=== PATIENT | female | born 1995 | race Caucasian/White ===

== ENCOUNTER 2017-01-12 08:03 | Emergency (ER) | payer OTHER ==
[~2017-01-12] VITALS: Ht 157.5 cm; Wt 72.2 kg
[2017-01-12 08:10] VITALS: BP 120/71
== END 2017-01-12 09:38 | disposition home or self-care (01) ==
LOC: ED 08:03
DX: O26.891 Other specified pregnancy related conditions, first trimester (principal); Z3A.13 13 weeks gestation of pregnancy

== ENCOUNTER 2018-05-23 20:05 | Inpatient (IN) | payer OTHER ==
[~2018-05-23] VITALS: Ht 160 cm; Wt 71.8 kg
[2018-05-23 20:19] VITALS: Ht 160 cm; Wt 71.8 kg
[2018-05-23 21:21] LABS: BASOPHIL % 0.3 % (0-2); PLATELET COUNT 395 x10^3mcL (130-400); RED CELL DISTRIBUTION WIDTH 19.2 % (11.5-14.5)
[2018-05-23 21:29] LABS: CALCIUM 9.3 mg/dL (8.5-10.1); CARBON DIOXIDE 24.1 mmol/L (21-32); CHLORIDE SERUM 102 mmol/L (98-107); CREATININE SERUM 0.5 mg/dL (0.6-1.0); GFR1 > 60 mL/min; GLUCOSE SERUM 101 mg/dL (74-106); SODIUM SERUM 136 mmol/L (136-145)
[2018-05-23 21:34] LABS: ALBUMIN 3.9 g/dL (3.4-5.0); ALKALINE PHOSPHATASE 158 U/L (46-116); ALT/SGPT 89 U/L (14-59); AST/SGOT 136 U/L (15-37); BILIRUBIN TOTAL 0.4 mg/dL (0.20-1.00); LIPASE 139 IU/L (73-393); TOTAL PROTEIN, SERUM 8.3 g/dL (6.4-8.2)
[2018-05-24 03:03] VITALS: BP 121/70
[2018-05-24 04:28] LABS: TOTAL IRON BINDING CAPACITY 419 ug/dL (250-450)
[2018-05-24 04:31] LABS: IRON 17 ug/dL (50-170); MAGNESIUM 2.1 mg/dL (1.8-2.4); PHOSPHOROUS 3.8 mg/dL (2.5-4.9)
[2018-05-24 04:41] LABS: CHOLESTEROL/HDL RATIO 2.9
[2018-05-24 04:48] LABS: T3 TOTAL 1.26 ng/mL
[2018-05-24 04:53] LABS: FREE T4 1.44 ng/dL (0.76-1.46); FREE THYROXINE INDEX 3.8 ug/dL (1.4-4.5); T4(THYROXINE) 10.8 ug/dL (4.7-13.3)
[2018-05-24 04:58] VITALS: BP 109/59
[2018-05-24 05:07] LABS: RED BLOOD CELLS 4.9 M/mm3 (4.10-5.10)
[2018-05-24 06:01] LABS: BASOPHIL % 0.6 % (0-2); PLATELET COUNT 377 x10^3mcL (130-400)
[2018-05-24 06:14] LABS: RED CELL DISTRIBUTION WIDTH 18.6 % (11.5-14.5)
[2018-05-24 06:24] LABS: CALCIUM 8.9 mg/dL (8.5-10.1); CARBON DIOXIDE 26.5 mmol/L (21-32); CHLORIDE SERUM 104 mmol/L (98-107); CREATININE SERUM 0.5 mg/dL (0.6-1.0); GFR1 > 60 mL/min; GLUCOSE SERUM 93 mg/dL (74-106); POTASSIUM SERUM 3.8 mmol/L (3.5-5.1); SODIUM SERUM 139 mmol/L (136-145)
[2018-05-24 07:54] VITALS: BP 108/54
[2018-05-24 12:00] VITALS: BP 99/54
[2018-05-24 16:44] VITALS: BP 111/60
[2018-05-24 18:50] LABS: microscopic required? NO
[2018-05-24 19:14] LABS: urine erythrocyte NEGATIVE (NEGATIVE)
[2018-05-24 20:16] VITALS: BP 103/56
[2018-05-25 04:55] VITALS: BP 100/51
[2018-05-25 06:08] LABS: BASOPHIL % 1.1 % (0-2); PLATELET COUNT 343 x10^3mcL (130-400)
[2018-05-25 06:22] LABS: CARBON DIOXIDE 25.8 mmol/L (21-32); CHLORIDE SERUM 108 mmol/L (98-107); CREATININE SERUM 0.7 mg/dL (0.6-1.0); GFR1 > 60 mL/min; GLUCOSE SERUM 98 mg/dL (74-106); POTASSIUM SERUM 3.9 mmol/L (3.5-5.1); SODIUM SERUM 139 mmol/L (136-145)
[2018-05-25 07:16] LABS: RED CELL DISTRIBUTION WIDTH 18.9 % (11.5-14.5)
[2018-05-25 09:03] VITALS: BP 111/51
[2018-05-25 17:05] VITALS: BP 108/57
[2018-05-25 20:57] VITALS: BP 105/58
[2018-05-26 05:55] VITALS: BP 120/73
[2018-05-26 05:55] LABS: BASOPHIL % 0.4 % (0-2); PLATELET COUNT 344 x10^3mcL (130-400)
[2018-05-26 06:31] LABS: CALCIUM 8.6 mg/dL (8.5-10.1); CARBON DIOXIDE 26.4 mmol/L (21-32); CHLORIDE SERUM 107 mmol/L (98-107); CREATININE SERUM 0.5 mg/dL (0.6-1.0); GFR1 > 60 mL/min; GLUCOSE SERUM 97 mg/dL (74-106); MAGNESIUM 1.8 mg/dL (1.8-2.4); PHOSPHOROUS 3.6 mg/dL (2.5-4.9); POTASSIUM SERUM 3.7 mmol/L (3.5-5.1); SODIUM SERUM 140 mmol/L (136-145)
[2018-05-26 08:35] VITALS: BP 115/58
[2018-05-26 13:37] VITALS: BP 115/58
== END 2018-05-26 15:21 | disposition home or self-care (01) | DRG 263 ==
LOC: ED 20:05 → MU 05-24 00:05 → DU 05-24 00:05 → MU 05-24 02:25 → DU 05-24 02:28 → MU 05-24 12:47
PROVIDERS: Emergency Medicine; Family Medicine; Internal Medicine; Surgery
PROC: 0FT44ZZ Resection of Gallbladder, Percutaneous Endoscopic Approach (ICD-10-PCS; principal; 2018-05-25 09:00)
DX: K80.20 Calculus of gallbladder without cholecystitis without obstruction (principal); K76.0 Fatty (change of) liver, not elsewhere classified; D50.9 Iron deficiency anemia, unspecified; D72.829 Elevated white blood cell count, unspecified; R74.0 Nonspecific elevation of levels of transaminase and lactic acid dehydrogenase [LDH]; R73.03 Prediabetes; Z87.440 Personal history of urinary (tract) infections; Z71.3 Dietary counseling and surveillance
CPT/HCPCS: 84439; J0330; J1170; J2250; J2405; J2543; J2704; J2710; J3010; J3490; J7030; J7120; Q0092

== ENCOUNTER 2019-05-04 12:31 | Emergency (ER) | payer OTHER ==
[~2019-05-04] VITALS: Ht 160 cm; Wt 68.9 kg
[2019-05-04 12:38] VITALS: Ht 160 cm; Wt 68.9 kg
[2019-05-04 14:19] LABS: BASOPHIL % 0.2 % (0-2); PLATELET COUNT 193 x10^3mcL (130-400)
[2019-05-04 14:22] LABS: RED CELL DISTRIBUTION WIDTH 16.9 % (11.5-14.5)
[2019-05-04 14:25] LABS: UA SPECIFIC GRAVITY 1.015 (1.005-1.035); microscopic required? YES; urine erythrocyte 2+ (NEGATIVE)
[2019-05-04 14:34] LABS: CALCIUM 8.7 mg/dL (8.5-10.1); CARBON DIOXIDE 23.8 mmol/L (21-32); CHLORIDE SERUM 102 mmol/L (98-107); CREATININE SERUM 0.4 mg/dL (0.6-1.0); GFR1 > 60 mL/min; GLUCOSE SERUM 92 mg/dL (74-106); POTASSIUM SERUM 4.4 mmol/L (3.5-5.1); SODIUM SERUM 138 mmol/L (136-145)
[2019-05-04 14:40] LABS: ALBUMIN 3.9 g/dL (3.4-5.0); ALKALINE PHOSPHATASE 106 U/L (46-116); ALT/SGPT 27 U/L (14-59); AST/SGOT 32 U/L (15-37); BILIRUBIN TOTAL 0.7 mg/dL (0.20-1.00); TOTAL PROTEIN, SERUM 7.5 g/dL (6.4-8.2)
[2019-05-04 16:39] VITALS: BP 135/65
== END 2019-05-04 16:40 | disposition home or self-care (01) ==
LOC: ED 12:31
PROVIDERS: Student in an Organized Health Care Education/Training Program
DX: N12 Tubulo-interstitial nephritis, not specified as acute or chronic (principal); Z90.49 Acquired absence of other specified parts of digestive tract
CPT/HCPCS: J0696; J1885; J2405; J7030

== ENCOUNTER 2019-05-05 14:16 | Inpatient (IN) | payer OTHER ==
[~2019-05-05] VITALS: Ht 160 cm; Wt 68.9 kg
[2019-05-05 14:22] VITALS: Ht 160 cm; Wt 68.9 kg
--- NOTE | 2019-05-05 16:07 | NUR ---
PATIENT PRESENTED TO THE ED WITH C/O ANTIBIOTICS PRESCRIBED YESTERDAY FROM HERE MAKE THE PATIENT SICK AND UNABLE TO TOLERATE. PT STS SHE WAS HERE YESTERDAY AND WAS UNABLE TO KEEP THE PILLS DOWN. BREATHING E/U, SKIN WARM, DRY AND INTACT NO OTHER SS OF DISTRESS NOTED. WILL CONTINUE TO MONITOR.
[2019-05-05 16:11] LABS: BASOPHIL % 0.1 % (0-2); PLATELET COUNT 177 x10^3mcL (130-400)
[2019-05-05 16:14] LABS: RED CELL DISTRIBUTION WIDTH 16.7 % (11.5-14.5)
[2019-05-05 16:22] LABS: CALCIUM 8.1 mg/dL (8.5-10.1); CARBON DIOXIDE 25.1 mmol/L (21-32); CHLORIDE SERUM 102 mmol/L (98-107); CREATININE SERUM 0.5 mg/dL (0.6-1.0); GFR1 > 60 mL/min; GLUCOSE SERUM 94 mg/dL (74-106); POTASSIUM SERUM 3.3 mmol/L (3.5-5.1); SODIUM SERUM 137 mmol/L (136-145)
[2019-05-05 16:27] LABS: ALBUMIN 3.6 g/dL (3.4-5.0); ALKALINE PHOSPHATASE 119 U/L (46-116); ALT/SGPT 30 U/L (14-59); AST/SGOT 22 U/L (15-37); BILIRUBIN TOTAL 0.71 mg/dL (0.20-1.00); LIPASE 72 IU/L (73-393)
--- NOTE | 2019-05-05 17:27 | NUR ---
PATIENT STILL WAITING FOR MSE. PT VSS, NAD NOTED. WILL CONTINUE TO MONITOR.
--- NOTE | 2019-05-05 18:17 | NUR ---
MEDICATED PER MD ORDERS
--- NOTE | 2019-05-05 18:20 | NUR ---
U/S IN PROGRESS BEDSIDE.
[2019-05-05 18:35] LABS: microscopic required? YES; urine erythrocyte TRACE (NEGATIVE)
--- NOTE | 2019-05-05 18:35 | NUR ---
REPORT PROVIDED TO BALA RODRIGUEZ FOR CONTINUED CARE OF PATIENT.
[2019-05-05 18:39] LABS: MAGNESIUM 1.9 mg/dL (1.8-2.4)
[2019-05-05 18:41] LABS: CHOLESTEROL/HDL RATIO 2.1
[2019-05-05 18:48] LABS: AMPHETAMINE QUAL UR NONE DETECTED (See below)
--- NOTE | 2019-05-05 19:28 | NUR ---
REPORT PROVIDED TO BALA WILLSON FOR CONTINUED CARE OF PATIENT.
--- NOTE | 2019-05-05 20:00 | NUR ---
RECEIVED PT VIA W/C FROM E/D, ACCOMPANIED BY RN. PT A/A/O X 4, CALM, COOPERATIVE; C/O CONSTANT THROBBING H/A 03/18. AMBULATORY, NO GAIT OR BALANCE IMPAIRMENT NOTED WHEN WALKING FROM W/C TO BED. DENIES CHEST PAIN OR DISCOMFORT AT THIS TIME. SCD BY BEDSIDE. NO ACUTE RESPIRATORY DISTRESS NOTED. POOR PO INTAKE > 3 DAYS. CONSTANT L FLANK SHARP PAIN 04/18 WITH DYSURIA (BURNING PAIN) AND DARK YELLOW URINE; PAIN EXACERBATED BY WALKING, RELIEVED BY PAIN MEDICATION AND RESTING. IV SITE RAC 22G, CDI. ORIENTED PT TO ROOM, BED CONTROLS, CALL LIGHT SYSTEM. SIDE RAILS UP X 2, BED IN LOW POSITION. WILL ENDORSE TO BALA FOSTER.
--- NOTE | 2019-05-05 20:10 | NUR ---
RECEIVED PATIENT FROM BALA RICK. PATIENT WAS SEEN RESTING COMFORTABLY IN BED. EATING DINNER. NO DISTRESS NOTED. BREATHING EVEN AND UNLABORED ON ROOM AIR. NO SOB OR RESP DISTRESS NOTED. DENIES CHEST PAIN/PRESSURE. C/O 04/18 LEFFT FLANK PAIN AND THROBBING HEADACHE. WILL MEDICATE PER EMAR. IV TO THE RAC INFUSING WELL. PATENT AND INTACT. NO REDNESS OR SWELLLING NOTED. REPORTS DYSURIA. COMFORT AND SAFETY MEASURES IN PLACE. CALL LIGHT IS WITHIN REACH. BED IS LOCKED AND IN THE LOWEST POSITION. SIDE RAILS UP X2. CALL LIGHT IS WITHIN REACH. WILL CONTINUE TO MONITOR.
[2019-05-05 20:20] VITALS: BP 124/71
--- NOTE | 2019-05-05 21:02 | NUR ---
C/O 10 LEFT FLANK PAIN AND HEADACHE. ADMINSITERED PRN NORCO PRESCRIBED. MED EDUCATION GIVEN. NO DISTRESS NOTED. BREATHING EVEN AND UNLABORED. SAFETY MEASURES IN PLACE. CALL LIGHT IS WITHIN REACH. WILL CONTINUE TO MONITOR
--- NOTE | 2019-05-05 22:26 | NUR ---
LAB REPORTED LACTIC 2.1. PAGE GATED DR WOODWARDED AND NOTIFIED HIM
--- NOTE | 2019-05-06 00:12 | NUR ---
RESTING IN BED COMFORTABLY USING PHONE. NO DISTRESS NOTED. DENIES PAIN. BREATHING EVEN AND UNLABORED ON ROOM AIR. NO SOB OR RESP DISTRESS NOTED. IV TO THE RAC INFUSING WELL. PATENT AND INTACT. NO REDNESS OR SWELLING NOTED. SAFETY MEASIRES IN PLACE. CALL LIGHT IS WITHIN REACH. WILL CONTINUE TO MONITOR.
--- NOTE | 2019-05-06 03:21 | NUR ---
REPORTS 9/10 LEFT FLANK PAIN AND HEADACHE. PRN NORCO GIVEN (SEE EMAR) PRESCRIBED. NO DISTRESS NOTED. IV LEAKING. SECURED WITH TAPE. NO LEAKING NOTED. BREATHING EVEN AND UNLABORED. SAFETY MEASURES IN PLACE. CALL LIGHT IS WITHIN REACH. WILL CONTINUE TO MONITOR.
[2019-05-06 06:37] VITALS: BP 102/57
[2019-05-06 07:00] LABS: BASOPHIL % 0.2 % (0-2); PLATELET COUNT 142 x10^3mcL (130-400)
[2019-05-06 07:06] LABS: CARBON DIOXIDE 23.4 mmol/L (21-32); CHLORIDE SERUM 106 mmol/L (98-107); POTASSIUM SERUM 3.4 mmol/L (3.5-5.1); SODIUM SERUM 139 mmol/L (136-145)
[2019-05-06 07:07] LABS: CALCIUM 7.6 mg/dL (8.5-10.1); CREATININE SERUM 0.5 mg/dL (0.6-1.0); GFR1 > 60 mL/min; GLUCOSE SERUM 93 mg/dL (74-106); MAGNESIUM 1.8 mg/dL (1.8-2.4); PHOSPHOROUS 2.4 mg/dL (2.5-4.9)
[2019-05-06 07:32] LABS: RED CELL DISTRIBUTION WIDTH 16.5 % (11.5-14.5)
--- NOTE | 2019-05-06 07:37 | NUR ---
RESTED IN INTERVALS THROUGHOUT THE NIGHT. NO ACUTE CHANGES NOTED. NO DISTRESS NOTED. BREATHING EVEN AND UNLABORED ON ROOM AIR. NO SOB NORED. ALL NEEDS AND CONCERNS ADDRESSED. SAFETY MEASURES IN PLACE. CALL LIGHT IS WITHIN REACH. ENDORSED CARE TO BALA SOLIMAN
--- NOTE | 2019-05-06 07:57 | NUR ---
REPORT RECEIVED FROM BAAL FOSTER. PATIENT AWAKE, ALERT AND ORIENTED X 4. BREAKFAST AT BEDSIDE. NO C/O PAIN. DR. LUTZ MADE ROUNDS TO SEE PATIENT. PLAN TO CONTINUE ANTIBIOTICS AND PENDING DISCHARGE TOMORROW. PATIENT AWARE OF PLAN.
[2019-05-06 08:59] VITALS: BP 99/49
--- NOTE | 2019-05-06 11:15 | NUR ---
RN NOTE: SPOKE WITH DR. BABCOCK REGARDING PATIENT'S HGB: 10.6. NO NEW ORDERS AT THIS TIME.
--- NOTE | 2019-05-06 14:20 | NUR ---
PATIENT AWAKE AND RESTING IN BED. NO SIGNS OF DISTRESS NOTED. WILL CONTINUE TO MONITOR. CALL LIGHT WITHIN REACH.
[2019-05-06 16:10] VITALS: BP 102/45
--- NOTE | 2019-05-06 19:05 | NUR ---
REPORT RECEIVED FROM DAY SHIFT RN. PATIENT WAS SEEN RESTING COMFORTABLY IN BED W/ FAMILY AT BEDSIDE. NO DISTRESS NOTED. BREATHING EVEN AND UNLABORED ON ROOM AIR. NO SOB OR RESP DISTRESS NOTED. DENIES PAIN AT THIS TIME. DENIES CHEST PAIN/PRESSURE. IV TO THE RAC INFUSING WELL. PATENT AND INTACT. NO REDNESS OR SWELLING NOTED. REPORTS DSYURIA, BUT IMPROVING. C/O DIZZINESS. EDUCATED PATIENT TO NOT GET OOB TO PREVENT FALLS. COMFORT AND SAFETY MEASURES IN PLACE. BED IS LOCKED AND IN THE LOWEST POSITION. SIDE RAILS UP X2. CALL LIGHT IS WITHIN REACH. WILL CONTINUE TO MONITOR.
--- NOTE | 2019-05-06 20:15 | NUR ---
PATIENT CALLED REPORTING THAT SHE ACCIDENTALLY PULLED ON IV. IV CAME LOOSE. REMOVED IV TO THE RAC. CATHETER INTACT. NEW IV PLACED TO [facility], 22G. PATIENT TOLERATED WELL. LFA IV FLUSHES WELL. PATENT AND INTACT. NO REDNESS OR SWELLING NOTED. CONTINUED NS AT 100ML/HR. K 3.4. NOTIFIED DR HADLEY FOR COVERAGE. DR HADLEY SAID NO COVERAGE IS NEEDED AT THIS TIME AND TO WAIT FOR AM LABS. SAFETY MEASURES IN PLACE. CALL LIGHT IS WITHIN REACH. WILL CONTINUE TO MONITOR.
--- NOTE | 2019-05-06 21:27 | NUR ---
C/O 8/10 ABD AND LEFT FLANK PAIN. PRN NORCO WAS ADMINISTERED PRESCRIBED. MED EDUCATION GIVEN. NO DISTRESS NOTED. SAFETY MEASURES IN PLACE. CALL LIGHT WITHIN REACH. WILL CONTINUE TO MONITOR.
[2019-05-06 22:00] VITALS: BP 117/73
--- NOTE | 2019-05-07 00:08 | NUR ---
RESTING IN BED WITH EYES CLOSED. NO DISTRESS NOTED. BREATHING EVEN AND UNLABORED ON ROOM AIR. NO SOB NOTED. IVF INFUSING WELL. SAFETY MEASURES IN PLACE. CALL LIGHT IS WITHIN REACH. WILL CONTINUE TO MONITOR.
--- NOTE | 2019-05-07 00:45 | NUR ---
IV TO LFA, 22G, NOT PATENT AND WON'T FLUSH. REMOVED WITH CATHETER INTACT. NEW IV PLACED TO LFA, 22G, FLUSHED WELL. TOLERATED WELL. PATENT AND INTACT. INFUSING NS @100ML/HR WELL. NO DISTRESS NOTED. WATER GIVEN. SAFETY MEASURES IN PLACE. CALL LIGHT IS WITHIN REACH. WILL CONTINUE TO MONITOR.
--- NOTE | 2019-05-07 03:32 | NUR ---
RESTING IN BED WITH EYES CLOSED. NO DISTRESS NOTED. BREATHING EVEN AND UNLABORED ON ROOM AIR. EVEN CHEST RISE AND FALL. IVF INFUSING WELL. PATENT AND INTACT. NO S/S OF PAIN NOTED. CALL LIGHT IS WITHIN REACH. SAFETY MEASURES IN PLACE. WILL CONTINUE TO MONITOR.
[2019-05-07 05:42] VITALS: BP 100/63
--- NOTE | 2019-05-07 05:49 | NUR ---
C/O 9/10 BACK AND BILATERAL FLANK PAIN. PRN NORCO ADMINISTERED PRESCRIBED. C/O SORE THROAT. GAVE HOT TEA AND PAGE GATED DR HADLEY. PATIENT REQUESTING COUGH DROPS. NO DISTRESS NOTED. WILL CONTINUE TO MONITOR.
--- NOTE | 2019-05-07 06:41 | NUR ---
C/O NAUSEA. GAVE PRN ZOFRAN PER ORDER. MED EDUCATION GIVEN. WILL ENDORSE TO DAY SHIFT RN. NO DISTRESS NOTED. SAFETY MEASURES IN PLACE.
--- NOTE | 2019-05-07 06:44 | NUR ---
RESTED IN LONG INTERVALS THROUGHOUT THE NIGHT. NO ACUTE CHANGES NOTED. BREATHING EVEN AND UNLABORED ON ROOM AIR. NO SOB NOTED. NO DISTRESS NOTED. REPORT DYSURIA IMPROVED, BUT HAS DISCOMFORT WITH URINATION. IV TO THE LFA INFUSING WELL. PATENT AND INTACT. NO REDNESS OR SWELLING NOTED. COMFORT AND SAFETY MEASURES IN PLACE. ALL NEEDS AND CONCERNS ADDRESSED. CALL LIGHT IS WITHIN REACH. WILL ENDORSE CARE TO DAY SHIFT RN.
[2019-05-07 07:00] LABS: BASOPHIL % 0.3 % (0-2); PLATELET COUNT 159 x10^3mcL (130-400)
[2019-05-07 07:09] LABS: RED CELL DISTRIBUTION WIDTH 16.7 % (11.5-14.5)
[2019-05-07 07:10] LABS: CALCIUM 7.7 mg/dL (8.5-10.1); CARBON DIOXIDE 26.4 mmol/L (21-32); CHLORIDE SERUM 108 mmol/L (98-107); CREATININE SERUM 0.5 mg/dL (0.6-1.0); GFR1 > 60 mL/min; GLUCOSE SERUM 110 mg/dL (74-106); MAGNESIUM 1.9 mg/dL (1.8-2.4); PHOSPHOROUS 3.1 mg/dL (2.5-4.9); POTASSIUM SERUM 3.6 mmol/L (3.5-5.1); SODIUM SERUM 142 mmol/L (136-145)
--- NOTE | 2019-05-07 07:50 | NUR ---
RECEIVED PT IN BED. ASSESSED AND DOCUMENTED. DENIES ANY PAIN THIS TIME. SAFTEY PRECAUTIONS ARE IN PLACE. WILL MONITOR.
[2019-05-07 09:04] VITALS: BP 107/55
--- NOTE | 2019-05-07 10:30 | NUR ---
OFFERED K-PAD BUT PT REFUSED. EXPLAINED THE PURPOSE OF K-PAD BUT PT STILL REFUSED.
--- NOTE | 2019-05-07 12:38 | NUR ---
PT C/O LEFT FLANK PAIN,5/10. ADMINISTERED NORCO PO ORDERED. WILL REASSESS.
--- NOTE | 2019-05-07 13:38 | NUR ---
PT SAID SHE DOESNOT HAVE ANY PAIN BUT FEEL NAUSEA. ADMINISTERED ZOFRAN IV ORDERED.
--- NOTE | 2019-05-07 18:22 | NUR ---
PT STATED MILD NAUSEA AND LEFT FLANK PAIN,5/10. ADMINSTERED NORCO PO AND ZOFRAN IV. SAFTEY PRECAUTIONS ARE IN PLACE. WILL MONITOR.
--- NOTE | 2019-05-07 19:00 | NUR ---
REPORT RECEIVED FROM DAY SHIFT RN. PATIENT WAS SEEN RESTING COMFORTABLY IN BED WITH AT BEDSIDE. NO DISTRESS NOTED. BREATHIN EVEN AND UNLABORED ON ROOM AIR. NO SOB OR RESP DISTRESS NOTED. DENIES CHEST PAIN/PRESSURE. NO C/O PAIN. DENIES N/V. IV TO THE LFA INFUSING NS WELL. PATENT AND INTACT. NO REDENSS OR SWELLING NOTED. DENIES GROSS OR DIZZINESS. DENIES DSYURIA OR DISCOMFORT WITH URINATION. REPORTS THAT SHE HAS VAGINAL SPOTTING. WEARING A MENSTRUAL PAD AND REPORTS 2 SMALL PINK SPOTS. WILL NOTIFY DR HADLEY. COMFORT AND SAFETY MEASURES IN PLACE. CALL LIGHT IS WITHIN REACH. BED IS LOCKED AND IN THE LOWEST POSITI. BED IS LOCKED AND IN THE LOWEST POSITION. WILL CONTINUE TO MONITOR.
--- NOTE | 2019-05-07 19:00 | NUR ---
PT RESTING IN BED COMFORTABLY. STABLE. SAID PAIN IS GETTING BETTER AND NO MORE NAUSEA. GAVE REPORT TO HOSPITAL ORDERLY NURSE.
[2019-05-07 21:09] VITALS: BP 111/52
--- NOTE | 2019-05-07 23:01 | NUR ---
REPORTING 7/10 PAIN IN BACK. PRN NORCO ADMINISTERED PRESCRIBED. NO DISTRESS NOTED. BREATHING EVEN AND UNLABORED ON ROOM AIR. SAFETY MEASURES IN PLACE. CALL LIGHT IS WITHIN REACH. WILL CONTINUE TO MONITOR.
--- NOTE | 2019-05-08 01:18 | NUR ---
REPORTS DIZZINES. STATES SHE NOTICES SHE GETS DIZZY IN THE AFTERNOON AND AT NIGHT. EDUCATED PATIENT TO GET OUT OF BED SLOWY. EDUCATED TO DANGLE FEET ON SIDE OF THE BED FOR A COUPLE MINUTES BEFORE GETTING OOB. PATIENT REPORTS BLOOD WHEN SHE WIPES AFTER SHE URINATED. STATES THERE IS NO ODOR, NOR IS THERE BLOOD ON HER PAD. NO DISTRESS NOTED. BREATHING EVEN AND UNLABORED. DR HADLEY AWARE OD DIZZINES AND VAGINAL BLEEDING. SAFETY MEASURES IN PLACE. WILL CONTINUE TO MONITOR.
--- NOTE | 2019-05-08 03:39 | NUR ---
RESTING IN BED WITH EYES CLOSED. NO DISTRESS NOTED. BREATHING EVEN AND UNLABORED ON ROOM AIR. IVF INFUSING WELL. NO S/S OF PAIN. SAFETY MEASURES IN PLACE. CALL LIGHT IS WITHIN REACH. WILL CONTINUE TO MONITOR
[2019-05-08 05:46] VITALS: BP 115/59
--- NOTE | 2019-05-08 05:57 | NUR ---
C/O 7/10 BACK PAIN AND NAUSEA. PRN NORCO AND ZOFRAN GIVEN PRESCRIBED. ALSO GAVE PRN COLACE FOR CONSTIPATION. NO DISTRESS NOTED. BREATHING EVEN. SAFETY MEASURES IN PLACE. WILL CONTINUE TO MONTIOR.
--- NOTE | 2019-05-08 06:22 | NUR ---
RESTED IN LONG INTERVALS THROUGHOUT THE NIGHT. NO ACUTE CHANGES NOTED. NO DISTRESS NOTED. BREATHING EVEN AND UNLABORED ON ROOM AIR. NO SOB NOTED. C/O BACK PAIN THROUHGOUT THE NIGHT. MEDICATED W/ PRN MORPHINE WITH GOOD RELIEF. DENIES CP. DENIES DSYURIA. REPORTS NAUSEA. NO EMESIS. PRN ZOFRAN GIVEN. REPORT MINIMAL BLOOD WHEN SHE WIPES AFTER SHE URINATES. ALL NEEDS AND CONCERNS ADDRESSED. SAFETY MEASURES IN PLACE. CALL LIGHT IS WITHIN REACH. WILL ENDORSE CARE TO DAY SHIFT RN
--- NOTE | 2019-05-08 07:30 | NUR ---
PT IS AAOX4. LUNG SOUNDS CTA. ON R/A. NORMAL S1S2 NOTED. ABDOMEN SOFT, NONTENDER, NONDISTENDED. BOWEL SOUNDS ACTIVE X4 QUADS. PT DENIES N/V/D AND CONSTIPATION. PT HAS C/O OF FLANK PAIN BUT STATES NO PAIN MED IS NEEDED AT THIS TIME. SKIN CDI. NO EDEMA. PERIPHERAL PULSES MODERATELY PALPABLE. IVF RUNNING TO [facility], SITE WNL. CALL LIGHT WITHIN REACH. BED IN LOWEST POSITION.
[2019-05-08 08:47] VITALS: BP 103/56
--- NOTE | 2019-05-08 09:44 | NUR ---
DUE MED GIVEN AND TOLERATED WELL. PT STATES SHE HAS L SIDED FLANK PAIN 7/, NORCO WILL BE GIVEN. RESP EVEN AND UNLABORED. CALL LIGHT WITHIN REACH.
--- NOTE | 2019-05-08 10:08 | NUR ---
NORCO 7/325MG PO GIVEN FOR SHARP L FLANK PAIN 02/15. PT TAUGHT TO DRINK LOTS OF WATER AND INCREASE ACTIVITY TO DECREASE THE SIDE EFFECT OF CONSTIPATION CAUSED BY NORCO. PT VERBALIZED UNDERSTANDING. CALL LIGHT WITHIN REACH. WILL CONTINUE MONITOR.
[2019-05-08 10:47] VITALS: BP 103/56
[2019-05-08] MEDS ORDERED: CIPROFLOXACIN500 MG PO (11:01)
[2019-05-08] MEDS ORDERED: PYR200 PO (11:02)
[2019-05-08] MEDS ORDERED: NORCO1 TA2 PO (11:07)
--- NOTE | 2019-05-08 12:00 | NUR ---
SPOKE WITH CHRISTIE IN [facility]. THE PT'S PCP DOES NOT OPEN UNTIL 1330. CHRISTIE STATED THE PT MAY DISCHARGE AND CHRISTIE WILL SCHEDULE AND APPT AFTER 1330 AND CALL THE PT WITH THE APPT TIME AND DATE. PT MADE AWARE.
[2019-05-08 13:21] VITALS: BP 103/56
--- NOTE | 2019-05-08 13:57 | NUR ---
PT DISCHARGE TO HOME IN NO DISTRESS. DISCHARGE INSTRUCTIONS REVEIWED, ALL QUESTIONS ANSWERED. ALL FORMS SIGNED AND PLACED IN CHART. RX GIVEN TO PT. IV CATH REMOVED FROM LFA, SITE WNL. NO S/S OF INFECTION OR INFILTRATION NOTED. SITE COVERED WITH GAUZE AND BANDAID. VS: T 97.7F, HR 58, RR 18, BP 103/56, O2 SAT 100% ON R/A. PT DENIES PAIN UPON DISCHARGE. ALL PERSONAL BELONGINGS TAKEN HOME.
== END 2019-05-08 14:00 | disposition home or self-care (01) | DRG 463 ==
LOC: ED 14:16 → MU 17:49
PROVIDERS: Emergency Medicine; ADMIT General Practice
DX: N12 Tubulo-interstitial nephritis, not specified as acute or chronic (principal); E87.6 Hypokalemia; Z90.49 Acquired absence of other specified parts of digestive tract
CPT/HCPCS: G0378; J0696; J2405; J7030; J7060; Q0092

== ENCOUNTER 2019-10-21 23:07 | Emergency (ER) | payer OTHER ==
[~2019-10-21] VITALS: Ht 160 cm; Wt 69.6 kg
[~2019-10-21 23:07] MED LIST: CIPROFLOXACIN500 MG PO; NORCO1 TA2 PO; PYR200 PO
[2019-10-21 23:14] VITALS: Ht 160 cm; Wt 69.6 kg
[2019-10-21 23:49] VITALS: BP 113/64
[2019-10-22 00:07] LABS: UA SPECIFIC GRAVITY 1.015 (1.005-1.035); microscopic required? YES; urine erythrocyte NEGATIVE (NEGATIVE)
== END 2019-10-21 23:49 | disposition home or self-care (01) ==
LOC: ED 23:07
PROVIDERS: Emergency Medicine
DX: N39.0 Urinary tract infection, site not specified (principal); Z90.49 Acquired absence of other specified parts of digestive tract
CPT/HCPCS: 36415; J1885

== ENCOUNTER 2019-10-24 13:41 | Emergency (ER) | payer OTHER ==
[~2019-10-24] VITALS: Ht 160 cm; Wt 68.0 kg
[2019-10-24 13:51] VITALS: BP 118/81; Ht 160 cm; Wt 68.0 kg
== END 2019-10-24 14:47 | disposition home or self-care (01) ==
LOC: ED 13:41
DX: R19.7 Diarrhea, unspecified (principal); R14.0 Abdominal distension (gaseous); M54.9 Dorsalgia, unspecified; R10.84 Generalized abdominal pain